=== PATIENT | female | born 2000 | race Caucasian/White ===

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

== ENCOUNTER 2022-01-03 14:43 | Outpatient (CLI) | payer OTHER, BC, SELFPAY ==
--- NOTE | 2022-01-03 14:53 | MRI_ITS ---
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 This report was created using [employer] report generation technology. COMPARISON: ct 08.05.20 FINDINGS: LIGAMENTS: MEDIAL COLLATERAL: Unremarkable. Intact. LATERAL COLLATERAL: Unremarkable. Intact. LISFRANC: Unremarkable. Intact. TENDONS: FLEXOR: Unremarkable. Intact. EXTENSOR: Unremarkable. Intact. PERONEAL: Unremarkable. Intact. TIBIALIS ANTERIOR: Unremarkable. Intact. TIBIALIS POSTERIOR: Unremarkable. Intact. MUSCLES: Unremarkable. No edema or myositis. FLUID: Unremarkable. No joint effusion. PLANTAR FASCIA: At the level of the marker, there is an area of thickening along the plantar fascia. This measures 16 x 4 x 8.9 mm. This is arising in the planter fascia. This has low T1 signal. It is almost isointense to muscle on the T2 images. BONES/JOINTS: Unremarkable. Normal forefoot alignment. No fracture. No bone marrow edema. No joint effusion. OTHER SOFT TISSUES: Unremarkable. 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 It appears larger than the prior study. Electronically Signed: Nathaniel Ballard MD at 18:43 EST Reading Location ID and State: [facility] / [place] , Service support ,
== END 2022-01-03 23:59 | disposition home or self-care (01) ==
LOC: MRI 14:44
PROVIDERS: PCP Family Medicine; Referring Provider Podiatrist; Visit Provider Podiatrist
DX: D21.22 Benign neoplasm of connective and other soft tissue of left lower limb, including hip (principal)
CPT/HCPCS: 73718

== ENCOUNTER 2022-02-22 08:16 | Outpatient (RCR) | payer OTHER, SELFPAY | END 2022-02-26 23:59 | LOC: EMPH 08:16 | PROVIDERS: PCP Family Medicine; Referring Provider Family Medicine Geriatric Medicine; Visit Provider Family Medicine Geriatric Medicine | DX: Z03.818 Encounter for observation for suspected exposure to other biological agents ruled out (principal) | CPT/HCPCS: 87811 ==

== ENCOUNTER 2023-08-24 09:42 | Emergency (ER) | payer BC, SELFPAY ==
[2023-08-24 09:43] VITALS: BP 133/95; PULSE 89; RESP 16; TEMP 36.4; O2SAT 99; BMI 23.7
--- NOTE | 2023-08-24 09:49 | EDS_ITS ---
HPI History of Present Illness Chief Complaint: Chest Pain [facility] Medical History (Updated 07/28/23 @ 12:03 by Ritu Graham CNM) Contraceptive management Encounter for screening for COVID-19 Medical History no medical history Home Medications NK 08/24/23 [History Last Taken Unknown] Allergy/AdvReac Type Severity Reaction Status Date / Time No Known Allergies Allergy Verified 08/24/23 09:45 Family History (Updated 01/13/22 @ 09:04 by Francine Chong) Grandmother Cancer Grandfather Diabetes Surgical History (Updated 01/13/22 @ 09:03 by Francine Chong) History of placement of ear tubes History of tonsillectomy and adenoidectomy Status post left foot surgery Social History (Updated 01/13/22 @ 09:04 by Francine Chong) Smoking Status: Never smoker alcohol intake: never substance use type: does not use caffeine: Yes what type of physical activity do you participate in: walking frequency: 1-2 times per week seatbelt use: always do you feel safe at home: Yes EXAM Physical Exam Const Vital Signs: 08/24/23 09:43 08/24/23 10:03 08/24/23 10:04 Temperature 97.5 F L Temperature Source Temporal Pulse Rate 89 Respiratory Rate 16 Respiratory Effort Normal Non-Labored Blood Pressure 133/95 H Blood Pressure Mean 107 Pulse Ox 99 Oxygen Delivery Method Room Air Room Air 08/24/23 11:58 Temperature Temperature Source Pulse Rate 75 Respiratory Rate 16 Respiratory Effort Blood Pressure 103/66 Blood Pressure Mean 78 Pulse Ox 99 Oxygen Delivery Method Room Air MDM MDM MDM Narrative Medical decision making narrative: HISTORY OF PRESENT ILLNESS: 22-year-old F presents with chest pain. Chest pain currently. States over the last several days she had intermittent chest tightness. Describes as sharp. It is not pleuritic. Is not ripping or tearing. Denies any cough fever chills. Denies any drug use such as methamphetamine or cocaine. Denies recent bleeding diathesis. Denies any recent leg swelling. Denies any associated shortness of breath. No sick contacts. No family history of early cardiac . No smoking. Denies history of hypertension, hyperlipidemia or diabetes. Patient denies sudden onset of pain, no tearing sensation, no migratory symptoms, no new numbness, weakness or loss of sensation. Patient denies family history or personal history of Marfan syndrome or Dragan-Danlos. The patient denies recent surgery in the last 4 weeks or immobilization in the last 3 days, denies previous diagnosis of DVT or PE, hemoptysis, unilateral leg swelling or malignancy with treatment the last 6 months. No estrogen use noted. REVIEW OF SYSTEMS: All other systems reviewed and are negative except as noted in the history of present illness. At least 10 review of systems reviewed and are negative except as noted in history of present illness. PHYSICAL EXAM: Nursing triage notes reviewed, Vital signs reviewed Constitutional: please see mdm HENT: MMM Eyes: Pupils equal round and reactive to light, Extraocular muscles intact Neck: No stridor, no JVD, full neck ROM Lungs: Clear to auscultation, No wheezing or rales. No increased work of breathing, no conversational dyspnea, no accessory muscle use, no nasal flaring. No respiratory distress noted Heart: Regular rate and rhythm, No murmurs, No rubs and No gallops, 2+ distal p ulses (radial, femoral, posterior tibial) in all extremities Abdomen: Soft, there is no tenderness, rigidity, rebound or guarding, no obvious peritoneal signs, no palpable pulsatile abdominal masses, no auscultated abdominal bruit : No CVAT Extremities: No edema Neuro: No focal neurological deficits, cranial nerves II through XII intact, 5/5 strength in all extremities. Intact sensation to light touch in all extremities, 2+ reflexes bilateral patella tendons. Normal gait. No ataxia. Skin: No rash or lesions noted MEDICAL DECISION MAKING: Chief Complaint: Chest pain External records reviewed: No recent cardiac catheterizations, stress test or echocardiograms noted in the chart Factors affecting care: COVID-19, influenza A Social determinants of health: Never smoker History obtained from others: None Consults: none [facility] Narrative: Patient was hemodynamically stable, afebrile, nontoxic-appearing. No focal cardiopulmonary normalities noted. I considered the following differential diagnosis: ACS, arrhythmia, anemia, electrolyte abnormality, pneumonia, pneumothorax, GI etiology, PE I obtained a broad lab and imaging work-up to further elucidate the etiology the patient complaints. ALL IMAGES (IF OBTAINED) HAVE BEEN PERSONALLY REVIEWED AND INTERPRETED BY MYSELF. EKG with normal sinus rhythm, normal axis, normal intervals, no STEMI CBC without leukocytosis, severe anemia, no thrombocytopenia. BMP without evidence of significant electrolyte abnormalities, no anion gap, no acute kidney injury. BNP within normal limits suggestive of no increase stretch or right heart strain high Sensitivity troponin is negative, no evidence of myocardial ischemia tx2 I have personally reviewed the patient's chest x-ray. Chest x-ray is unremarkable for pulmonary edema, pneumothorax, pneumonia or focal cardiopulmonary abnormality. Repeat EKG continues to show normal sinus rhythm, normal axis, normal intervals, no STEMI PE less likely given low risk Wells score. Aortic dissection is thought to be less likely given no sudden ripping or tearing pain, migratory pain, palpable pulse inequalities, no focal neurologic deficits concurrent with chest pain. Chance of dissection less than 10/1999. Pericarditis less likely given no pathognomonic EKG changes (no diffuse ST elevations, TN depressions). GI etiology (i.e. Boerhaave syndrome) less likely given no chest or neck crepit us, no vomiting or forced retching. The synthesis of the patient's 3, physical exam labs, images, EKGs just no letter from radiology. On the patient ED course she was found to be vaping. This may be the etiology of her complaints chest tightness likely secondary to reactive airway disease from vaping. Patient was given strict return precautions and follow-up instructions. I completed a HEART Score to screen for Major Adverse Cardiac Event (MACE) in this patient. The evidence indicates that the patient is very low risk for MACE and this is consistent with my clinical intuition. The risk of further workup or hospitalization for MACE is likely higher than the risk of the patient having a MACE. It is, therefore, in the patient?s best interest not to do additional emergent testing or to be hospitalized for MACE at this time. Shared Decision-Making No hospitalization indicated I have discussed with the patient my clinical impression and the result of the HEART Score to screen for MACE, as well as the risks of further testing and hospitalization. The HEART Score shows that the risk for MACE is less than 1%. Although the risk of MACE has not been completely eliminated, the risks of further testing or hospitalization for MACE likely exceed any potential benefit, and the patient agrees with not pursuing further emergent evaluation or hospitalization for MACE at this time. The patient and/or family, caregivers express understanding. The patient and/or family, caregivers agrees with the plan. Total critical care time today provided was at least 0 minutes. This excludes separately billable procedures. Critical care time (if documented) is secondary to the patient having high probability of clinically significant/life threatening deterioration in the patient's condition which required my urgent intervention. Victoriano Cox, Lab Data Labs: Laboratory Results - last 24 hr 08/24/23 08/24/23 10:10 12:34 WBC 6.1 RBC 4.66 Hgb 14.6 Hct 42.2 MCV 90.6 MCH 31.3 MCHC 34.6 RDW Std Deviation 39.3 RDW Coeff of Ivet 11.9 Plt Count 180 MPV 10.5 Immature Gran % (Auto) 0.200 Neut % (Auto) 49.6 Lymph % (Auto) 39.1 Alpine % (Auto) 8.3 Eos % (Auto) 2.1 Baso % (Auto) 0.7 Absolute Neuts (auto) 3.0 Absolute Lymphs (auto) 2.39 Nucleated RBC % 0 Sodium 141 Potassium 3.4 L Chloride 109 H Carbon Dioxide 26.0 Anion Gap 6 BUN 11 Creatinine 0.96 Estim Creat Clear Calc 87.51 Est GFR (MDRD) Af Amer 95 Est GFR (MDRD) Non-Af 78 BUN/Creatinine Ratio 11.5 Glucose 121 H Calcium 8.7 Troponin I High Sens 4 3 B-Natriuretic Peptide 2.1 Radiography Diagnostic Testing: Clinical Impression(s) from Imaging Studies Chest X-Ray 08/24/23 10:22 IMPRESSION: Normal x-ray examination of the chest. Electronically Signed: Damon Duncan MD at 10:39 EDT , Discharge Plan Triage Chief Complaint: Chest Pain ED Provider: Victoriano Cox Dx/Rx/DC Orders Instructions: E Cigarettes and Vaping, Chest Pain [facility] Prescriptions: No Action NK Primary Care Provider: Arely Manzo Referrals: Francine Harper MD [Med Staff - [employer]] - Activity Restrictions/Additional Instructions: Thank you for trusting us with your care today! Please take Tylenol (2 pills, 650 mg), ibuprofen (2 pills, 400 mg) every 6 hours as needed for pain and fever control. Please return to the emergency department if your symptoms change or worsen. Please follow with your primary care physician for further outpatient evaluation and management. Disposition Disposition: Home, Self Care
--- NOTE | 2023-08-24 09:51 | EKG12_ITS ---
Test Reason : CHEST PRESSURE Blood Pressure : / mmHG Vent. Rate : 088 BPM Atrial Rate : 088 BPM P-R Int : 164 ms QRS Dur : 082 ms QT Int : 364 ms P-R-T Axes : 033 085 004 degrees QTc Int : 440 ms Normal sinus rhythm Possible Left atrial enlargement Borderline ECG No previous ECGs available Confirmed by TRINO LAU, RACHNA ([id number]), editor producer CHERYLE SANTIAGO ([id number]) on 08/30/2023 1:55:29 PM Referred By: THO/MELANIA Confirmed By:RACHNA JAMESON MD
--- NOTE | 2023-08-24 10:00 | EKG12_ITS ---
Test Reason : REPEAT Blood Pressure : / mmHG Vent. Rate : 067 BPM Atrial Rate : 067 BPM P-R Int : 166 ms QRS Dur : 084 ms QT Int : 406 ms P-R-T Axes : 017 084 023 degrees QTc Int : 429 ms Normal sinus rhythm Normal ECG When compared with ECG of 24-AUG-2023 09:51, MANUAL COMPARISON REQUIRED, DATA IS UNCONFIRMED Confirmed by TRINO LAU, RACHNA ([id number]), senior editor LI MIRANDA ([id number]) on 08/30/2023 6:40:29 AM Referred By: Confirmed By:RACHNA JAMESON MD
[2023-08-24 10:22] LABS: Absolute Lymphocyte Count 2.39 X10^3/uL (0.83-4.51); Basophil# 0.04 X10^3/uL; Basophil% 0.7 % (0-1); Eosinophil# 0.13 X10^3/uL; Eosinophils% 2.1 % (0-5); Hematocrit 42.2 % (37-47); Hemoglobin 14.6 g/dL (12.0-15.0); Lymphocyte # 2.39 X10^3/ul (0.83-4.51); Lymphocyte % 39.1 % (19-41); Mean Corp Hgb Conc 34.6 g/dL (32-36); Mean Corpuscular Hgb 31.3 pg (27.0-32.0); Mean Corpuscular Volume 90.6 fL (81-99); Mean Platelet Vol. 10.5 fl (6.2-12.0); Monocyte# 0.51 X10^3/uL; Monocyte% 8.3 % (0-10); NRBC Flagged by Analyzer 0 % (0-5); Neutrophil # 3.03 X10^3/uL (2.7-7.7); Neutrophil % 49.6 % (47-70); Platelet Count 180 K/mm3 (150-450); RBC Distribution Width CV 11.9 % (11.6-14.6); RBC Distribution Width SD 39.3 fl (35.1-43.9); Red Blood Count 4.66 M/mm3 (4.2-5.4); White Blood Count 6.1 K/mm3 (4.4-11.0)
--- NOTE | 2023-08-24 10:22 | RAD_ITS ---
STUDY: X-RAY CHEST REASON FOR EXAM: Female, 22 years old. Chest pain and chest heaviness. TECHNIQUE: Single AP portable view of the chest. COMPARISON: Comparison is made with prior study dated November 30, 2021. FINDINGS: EKG electrodes are seen. The lungs are clear and expanded. There is no demonstrated pleural abnormality. Normal size heart. Normal mediastinum and curt. Normal visualized pulmonary arteries. Normal visualized aortic arch and descending thoracic aorta. Normal visualized thoracic spine. Normal visualized ribs, clavicles, and shoulders. There is no demonstrated abnormality of the visualized soft tissue structures of the upper abdomen. RAD/Chest 1 View (Portable) IMPRESSION: Normal x-ray examination of the chest. Electronically Signed: Damon Duncan MD at 10:39 EDT ,
[2023-08-24 10:45] LABS: BNP,B-Type NATRIURETIC PEPTIDE 2.1 pg/mL (0-100)
[2023-08-24 10:49] LABS: Anion Gap 6 (5-15); BUN 11 mg/dL (7-18); BUN/Creat Ratio 11.5 RATIO (10-20); Calcium,Total 8.7 mg/dL (8.5-10.1); Chloride 109 mmol/L (98-107); Creatinine, Serum 0.96 mg/dL (0.55-1.02); EST Glomerular Filtration Rate 78 mL/min (>60); Est Glom Filt Rate - Afr Amer 95 mL/min (>60); Estimated Creatinine Clearance 87.51 ml/min; Glucose 121 mg/dL (74-106); Potassium 3.4 mmol/L (3.5-5.1); Sodium Level 141 mmol/L (136-145); Troponin-I HS (w/2H Reflex) 4 pg/mL (3.0-54.0)
[2023-08-24 11:58] VITALS: BP 103/66; PULSE 75; RESP 16; O2SAT 99
[2023-08-24 12:00] VITALS: BP 103/71; PULSE 73; RESP 15; O2SAT 98
[2023-08-24 12:16] LABS: Reflex Troponin-HS? (from REC) Y
--- NOTE | 2023-08-24 12:17 | ED.RN ---
THIS RN INTO ROOM. PT HOLDING VAPE PER RESPIRATORY THERAPY. PT STATES I'M JUST HOLDING IT. PT STATES HER SIG OTHER IS THE ONE VAPING. PT AND SUPPORT PERSON AWARE NEITHER ONE IS TO BE VAPING IN THE ROOM. DR MENDES
[2023-08-24 13:00] VITALS: BP 106/70; PULSE 73; RESP 15; O2SAT 98
[2023-08-24 13:12] LABS: Troponin-I HS 3 pg/mL (3.0-54.0)
== END 2023-08-24 13:47 | disposition home or self-care (01) ==
PROVIDERS: Emergency Provider Emergency Medicine; PCP Internal Medicine; Visit Provider Emergency Medicine
DX: R07.9 Chest pain, unspecified (principal); Z11.52 Encounter for screening for COVID-19; F17.290 Nicotine dependence, other tobacco product, uncomplicated
CPT/HCPCS: 71045; 80048; 83880; 84484; 85025; 93005; 99284; A4216

== ENCOUNTER 2024-11-08 07:19 | Day surgery (SDC) | payer BC, SELFPAY ==
[2024-11-08] VITALS (9 sets, daily range): BP systolic 101–144; BP diastolic 70–96; PULSE 65–85; RESP 16–18; TEMP 36.3–36.6; O2SAT 98–100; BMI 24.2
[2024-11-08] MEDS: 0.9% Normal Saline (1000mL) 1,000 ML 15 ML IV (07:51)
[2024-11-08 07:56] LABS: Internal QC Validated? YES +Cl - CLEAR BKGD; Pregnancy, Urine Negative Negative
--- NOTE | 2024-11-08 08:19 | PCM.PRE.AN2 ---
ASA Classification* ASA Classification ASA Classification: 2 Assessment & Plan Anesthesia* Anesthesia Assessment Anesthesia Assessment: Discussed sedation and/or anesthesia options, risks, benefits, and alternatives with patient/parents/legal guardian/POA. Questions invited. The patient/parents/legal guardian/POA seems to understand and agrees to proceed with anesthesia plan. Reviewed the physical assessment, medical history, allergy history and patient home medications list prior to surgery/procedure/anesthetic and documented any changes. Performed airway and anesthesia risk assessments. Anesthesia Type Anesthesia Type: General and Block (Patient is consented for popliteal block.) History Source History Obtained from:: Patient and Chart Anesthesia Focused Assessment* Temperature: 97.4 F Pulse Rate: 78 Blood Pressure: 107/70 Respiratory Rate: 18 Pulse Ox: 98 Oxygen Delivery Method: Room Air Airway Assessment Mouth opens: >3 cm Mallampati Score: II Teeth Condition: Intact Neck Range of motion (ROM): Full ROM Focused Labs Anesthesia Preop lab: CBC WBC 6.1 K/mm3 (4.4-11.0) 08/24/23 10:10 RBC 4.66 M/mm3 (4.2-5.4) 08/24/23 10:10 Hgb 14.6 g/dL (12.0-15.0) 08/24/23 10:10 Hct 42.2 % (37-47) 08/24/23 10:10 Plt Count 180 K/mm3 (150-450) 08/24/23 10:10 CHEMISTRY Potassium 3.4 mmol/L (3.5-5.1) L 08/24/23 10:10 Sodium 141 mmol/L (136-145) 08/24/23 10:10 BUN 11 mg/dL (7-18) 08/24/23 10:10 Creatinine 0.96 mg/dL (0.55-1.02) 08/24/23 10:10 Glucose 121 mg/dL (74-106) H 08/24/23 10:10 COAG Urine Test Negative Negative 11/08/24 07:30 Tst Clinic Negative 02/17/22 12:05 Pre-Assessment Diagnosis/Proposed Procedure Planned Operative Procedure(s): (L) Left foot excision of Plantar Fibroma Anesthesia History Anesthesia History - filler and trimmer: Anesthesia History - filler and trimmer Hx Hospitalization No 01/06/25 13:54 Any Problems With Anesthesia No 11/04/24 13:54 Cholinesterase deficiency No 11/04/24 13:54 You/Your Family Experience No 11/04/24 13:54 fever (hyperthermia) with Relationship Recent Exposure to Contagious No 11/08/24 07:42 Disease Does patient have nerve No 11/04/24 13:54 stimulator Patient instructed to have device shut off --Does patient have Pacemaker No 11/08/24 07:42 or ICD? When Was Last Pacemaker Check QUESTION #4 FULL TEXT: You/Your Family Experience fever (hyperthermia) with Anesthesia Last Oral Intake Last Oral intake: Last Oral Intake NPO since 22:00 11/08/24 07:42 Meds taken in AM with sips of No 11/08/24 07:42 water? Meds patient instructed to take am of surgery PONV PONV - filler and trimmer: PONV - filler and trimmer Female Yes 11/04/24 13:54 HX of Motion Sickness No 11/04/24 13:54 HX of N/V After Surgery No 11/04/24 13:54 Non-Smoker Yes 11/04/24 13:54 Duration of Surgery greater Yes 11/04/24 13:54 than 60 minutes Number of Risk Factors 3 11/04/24 13:54 PONV Score Moderate Risk 11/04/24 13:54 Height & Weight Height & Weight: Anesthesia: Height & Weight Height 5 ft 6 in 11/08/24 07:42 Weight: 68 kg 11/08/24 07:42 Body Mass Index (BMI) 24.2 11/08/24 07:42 Respiratory Assessment Respiratory Assessment - filler and trimmer: Respiratory Tract Infection Hx - filler and trimmer Hx Respiratory Tract Infection No 11/04/24 13:54 Any additional information?: Yes Hx Respiratory Tract Infection: Yes (Patient had a cold a week ago. It is resolved.) STOP Sleep Apnea STOP Sleep Apnea - filler and trimmer: STOP Sleep Apnea - filler and trimmer Hx Hypertension No 11/04/24 13:54 Hx Sleep Apnea No 11/04/24 13:54 CPAP BIPAP Do you snore loudly (louder No 11/04/24 13:54 than talking or can be heard Do you often feel tired/ No 11/04/24 13:54 fatigued/ sleepy during daytime? Has anyone observed you stop No 11/04/24 13:54 breathing during sleep? STOP Results Negative 11/04/24 13:54 QUESTION #5 FULL TEXT : Do you snore loudly (louder than talking or can be heard through closed doors)? Tobacco Use History Tobacco Use History - filler and trimmer: Tobacco Use History - filler and trimmer Tobacco Use Smoking Status Never smoker 11/04/24 13:54 Hx Tobacco Use No 11/04/24 13:54 Years Smoking Packs Smoked per Day Smoking Cessation Date was within the last 15 years Hx Smoking Cessation Date Hx Smoking Cessation Counseling Hematologic Medial History Hematologic Hx - filler and trimmer: Hematologic Medical Hx - deburrer strip Hx of Blood Transfusion No 11/04/24 13:54 Hx of Transfusion in last 3 No 11/04/24 13:54 Months Date of Last Transfusion (if within last 3 months) Ever experience any problems No 11/04/24 13:54 with transfusion(s)? Specify any problems Hx of Preganancy in last 3 No 11/04/24 13:54 Months Nurse Filling Out Transfusion MGRIFFITH 11/04/24 13:54 & Questions: Date: 11/04/24 11/04/24 13:54 Time: 13:55 11/04/24 13:54 Patient unable to answer at this time (ie. confused, unrespo /Reproduction History /Reproductive History - filler and trimmer: /Reproductive Hx- filler and trimmer Hx Now No 11/04/24 13:54 Gestational Age (in weeks): EDC: Hx Hx Para Hx Section SAB No 11/04/24 13:54 Active Medications Active Medications: Current Medications Generic Name Dose Route Start Last Admin Trade Name Freq PRN Reason Stop Dose Admin Cefazolin Sodium 2 gm/ N/A 20 mls @ 400 mls/hr 11/08/24 08:55 IV 11/08/24 08:57 PREOP ONE Sodium Chloride 1,000 mls @ 15 mls/hr 11/08/24 07:25 11/08/24 07:51 IV 11/13/24 20:44 15 mls/hr .Q48H RADHA Administration Protocol PFSH Medical History Wears contact lenses Wears glasses Anxiety Depression Non-smoker Encounter for screening for COVID-19 Contraceptive management Home Medications ?Medication ?Instructions ?Recorded ?Last Taken ?Type NK 11/08/24 Unknown History Allergy/AdvReac Type Severity Reaction Status Date / Time No Known Allergies Allergy Verified 11/08/24 07:41 Family History Grandmother Cancer Grandfather Diabetes Surgical History Status post left foot surgery History of placement of ear tubes History of tonsillectomy and adenoidectomy Social History Smoking Status: Never smoker alcohol intake: never substance use type: does not use caffeine: Yes what type of physical activity do you participate in: walking frequency: 1-2 times per week seatbelt use: always do you feel safe at home: Yes Review of Systems (Anesthesia) ROS Narrative System reviewed and no additional complaints, except as documented.
[2024-11-08] MEDS: Cefazolin 2 GM in Syringe IV (08:54)
--- NOTE | 2024-11-08 08:55 | SOF_PTH ---
PATIENT: CSOT WALTER [place] [facility] [id number] AGE/SX: 24/F ROOM: RE11/08/[address]: Dr. Elier Vivas DPM : 2000 BED: DIS: 11/08/2024 SPEC #: [id number] RECD: 11/08/24 10:41 STATUS: ANITRA REMiguel #: [id number] MARELNA: 11/08/24 08:[address]: Elier Vivas DEPT: SURGICAL PATHOLOGY RECD BY: Mahsa Curtis ENTERED: 11/08/24 11:49 SP TYPE: SOFT TISS OTHR DR: Dr. Arely Manzo, DO Tissues: Fibrous tissue Procedures: Surgery Specimen Level III HEADER OPERATION: Left foot excision of plantar fibroma PRE-OP DIAGNOSIS: Left foot plantar fibroma TISSUE SUBMITTED: Left foot plantar fibroma MICROSCOPIC DIAGNOSIS Left foot plantar fibroma, excision: Pieces of dense fibroconnective tissue, consistent with fibroma. SJ.mr 11/11/2024 MICROSCOPIC DESCRIPTION Slides are reviewed. GROSS DESCRIPTION Received in fixative is one container labeled with the patient's name and designated Left foot plantar fibroma. The specimen consists of two pieces of dense fibroconnective tissue measuring in aggregate 2.0 x 1.5 x 0.2cm. The entire specimen is submitted in one cassette. 11/08/2024 TC:5 CPT:89931
--- NOTE | 2024-11-08 09:47 | OP.PCM_ITS ---
Problems Associated Problem List Diagnoses (1) Other acute postprocedural pain: (2) Plantar fascial fibromatosis of left foot: Operative Report (Standard) Operative Information Date of Procedure: 11/08/24 Pre-Operative Diagnosis: 1 plantar fibroma central band left foot Post-Operative Diagnosis: Same Surgery/Procedure Performed: Excision plantar fibroma left foot condenser tube tender: Yes Fire Officer: taylor stern Tasks completed by blood donor unit assistant: Opening, Closing, Dissecting tissue, Removing tissue, Altering tissue, Hemostasis: Tie and Retracting Additional certified surgical tech/first assistant?: No Type of Anesthesia: General RN Documented Start/Stop Times: Operation Date: 11/08/24 08:55 Case Time Into Pre-Op 11/08/24 07:22 Out of Pre-Op 11/08/24 08:53 Anesthesia Start 11/08/24 08:54 Into Room 11/08/24 08:54 Procedure Start 11/08/24 09:11 Procedure End 11/08/24 09:40 Anesthesia End 11/08/24 09:43 Out of Room 11/08/24 09:43 Into Recovery Procedure Start Time: 09:00 Procedure Stop Time: 09:48 Select all DRAINS/GRAFTS/IMPLANTS that apply: None Special Medications: None Estimated Blood Loss: Minimal Specimen collected: Yes Description of specimen(s) removed: Plantar fibroma left foot Description of surgery: Patient brought back the operating placed completely supine position on the operating room table. All osseous prominences offloaded prevent a compression neuropraxia's. Patient induced under general anesthesia. Well-padded left ankle tourniquet was applied to left lower extremity. Left lower extremity scrubbed prepped draped using typical aseptic fashion. Left lower extremity was elevated exsanguinated tourniquet was inflated 250 mmHg A curvilinear incision was drawn along the central aspect of the plantar fascial band along the course of the 1 x 2 cm plantar fibroma this incision would be made with a 15 blade through epidermis dermis into subcutaneous tissue any bleeders were identified cauterized deep dissection was taken down with atraumatic blood technique down to the level of the plantar fascia a 1 x 2 cm plantar fibroma was identified and this would be excised using pickups and a #15 blade and passed to the back table for to be sent for pathology. Residual examination of the site demonstrated no residual plantar fibroma no area of tightness no additional concerns no foreign body noted. Site was flushed with copious amounts normal sterile saline and then closed with simple interrupted buried 3-0 Vicryl and then skin closure performed with pleasant 3-0 Prolene simple interrupted. Tourniquet was let down. Site was dressed with Betadine Adaptic 4 x 4's Kerlix and a well-padded AO splint with the foot and ankle held in a rectus position. Patient was transferred to the PACU with vital signs stable vascular status intact all digits for further monitoring prior to discharge. Patient tolerated procedure and anesthesia well apparent satisfactory condition. Patient maintain nonweightbearing for 2 weeks until incisional healing and then return to ambulatory function at that time. Pathologic specimens: Plantar fibroma left foot No complications Adequate resection of plantar fibroma noted Surgical Findings: As dictated above Complications Complications: No
--- NOTE | 2024-11-08 10:09 | PCM.POSTANE2 ---
Anesthesia Postop Eval I Sum Anesthesia Postop Eval I Summary Anesthesia Postop Eval I Summary: Anesthesia Postop Eval I: Assessment Summary Airway patent Spontaneous unlabored respirations Mental status nausea Vomiting Anesthesia Postop Eval I: Fluid Summary Crystalloid volume administer (ml) Colloids volume administered ( ml) Blood Product volume administered (ml) Total IV fluid infused Anesthesia Postop Eval I: Summary Notes Anesthesia Complication Anesthesia Complication Comment: Post-operative progress note Anesthesia: Postop Eval II Evaluation Mental status: Awake Pain Level: 2 nausea: No Vomiting: No
--- NOTE | 2024-11-08 10:57 | SUR.PHASEII ---
Pt's scripts were sent to [facility] in [place], [place]. They need to sent to [facility] in [place]. Called [facility] and had them transfer to [facility]. they will cancel the oxycodone, and Dr. Vivas will send to [facility].
--- NOTE | 2024-11-08 11:11 | PCM.POST.ANE ---
Anesthesia: Postop Eval I Current Vital Signs Temperature: 97.9 F Pulse Rate: 65 Blood Pressure: 104/73 Respiratory Rate: 16 Pulse Ox: 100 Oxygen Delivery Method: Room Air Assessment Airway patent: Yes Spontaneous unlabored respirations: Yes Mental status: Awake and Calm nausea: No Vomiting: No Anesthesia Complication: No Fluid Hydration Crystalloid volume administer (ml): 500 Total IV fluid infused: 500 Progress Note Anesthesia document: Postop Eval 1 completed: Yes
== END 2024-11-08 11:10 | disposition home or self-care (01) ==
LOC: SDC 07:20 → AC 07:21
PROVIDERS: Anesthesiology; PCP Internal Medicine; Referring Provider Podiatrist; Visit Provider Podiatrist
PROC: (CPT 28041; principal; 2024-11-08 08:40)
DX: M72.2 Plantar fascial fibromatosis (principal); G89.18 Other acute postprocedural pain
CPT/HCPCS: 28041; 01470; 64450; 81025; 88304; J2405

== ENCOUNTER → 2024-12-09 | Outpatient (CLI) | payer BC, SELFPAY ==
[2024-12-10 21:06] LABS: Chlamydia By Nucleic Acid AMP Negative (Negative); Gonococcus By Nucleic Acid AMP Negative (Negative)
[2024-12-13 19:08] LABS: HPV APTIMA, High Risk Negative (Negative)
[2024-12-14 08:16] LABS: HPV Reflexed? YES, CHARGE PATIENT
== END | disposition home or self-care (01) ==
LOC: LABSPEC 11:09
PROVIDERS: PCP Internal Medicine; Referring Provider Obstetrics & Gynecology; Visit Provider Obstetrics & Gynecology
DX: Z12.4 Encounter for screening for malignant neoplasm of cervix (principal); Z11.3 Encounter for screening for infections with a predominantly sexual mode of transmission
CPT/HCPCS: 87491; 87591; 87624; 88175; G0145

== ENCOUNTER → 2025-02-28 | Outpatient (CLI) | payer BC, SELFPAY ==
[2025-02-28 12:09] LABS: Absolute Lymphocyte Count 1.45 X10^3/uL (0.83-4.51); Absolute Neutrophil Count 4.5 X10^3/uL (2.0-7.7); Basophil# 0.04 X10^3/uL; Basophil% 0.6 % (0-1); Eosinophil# 0.09 X10^3/uL; Eosinophils% 1.4 % (0-5); Hematocrit 40.6 % (37-47); Hemoglobin 14.6 g/dL (12.0-15.0); Lymphocyte # 1.45 X10^3/ul (0.83-4.51); Mean Corpuscular Hgb 32.4 pg (27.0-32.0); Mean Platelet Vol. 11.1 fl (6.2-12.0); Monocyte# 0.51 X10^3/uL; Monocyte% 7.7 % (0-10); NRBC Flagged by Analyzer 0 % (0-5); Neutrophil # 4.48 X10^3/uL (2.7-7.7); Platelet Count 179 K/mm3 (150-450); RBC Distribution Width SD 39.4 fl (35.1-43.9); Red Blood Count 4.51 M/mm3 (4.2-5.4); White Blood Count 6.6 K/mm3 (4.4-11.0)
[2025-02-28 12:53] LABS: HIV Nonreactive (Nonreactive); Hepatitis B Surface Antigen Nonreactive (Nonreactive); Hepatitis C Antibody Nonreactive (Nonreactive); Rubella IgG REAC (Nonreactive); Syphilis Antibodies Nonreactive (Nonreactive)
[2025-03-03 21:07] LABS: Chlamydia By Nucleic Acid AMP Negative (Negative); Gonococcus By Nucleic Acid AMP Negative (Negative)
== END | disposition home or self-care (01) ==
PROVIDERS: PCP Internal Medicine; Referring Provider Obstetrics & Gynecology; Visit Provider Obstetrics & Gynecology
DX: Z34.01 Encounter for supervision of normal first pregnancy, first trimester (principal)
CPT/HCPCS: 36415; 85025; 86703; 86762; 86780; 86803; 86850; 86900; 86901; 87077; 87086; 87088; 87186; 87340; 87491; 87591

== ENCOUNTER → 2025-04-03 | Outpatient (CLI) | payer BC, SELFPAY | END | disposition home or self-care (01) | LOC: LABSPEC 11:52 | PROVIDERS: PCP Internal Medicine; Referring Provider Advanced Practice Midwife; Visit Provider Advanced Practice Midwife | DX: O26.899 Other specified pregnancy related conditions, unspecified trimester (principal); R10.2 Pelvic and perineal pain; R35.0 Frequency of micturition; Z3A.00 Weeks of gestation of pregnancy not specified | CPT/HCPCS: 87086; 87088; 87186 ==